=== PATIENT | female | born 1990 | race Native Hawaiian/Other Pacific Islander ===

== ENCOUNTER 2021-04-17 14:30 | Emergency (ER) | payer BC ==
[~2021-04-17] VITALS: Ht 170.2 cm; Wt 61.2 kg
[2021-04-17 14:44] VITALS: TEMP 98.7
[2021-04-17 16:40] VITALS: BP 94/56
== END 2021-04-17 16:40 | disposition home or self-care (01) ==
LOC: ED 14:30
DX: S92.355A Nondisplaced fracture of fifth metatarsal bone, left foot, initial encounter for closed fracture (principal); W10.8XXA Fall (on) (from) other stairs and steps, initial encounter; Y92.89 Other specified places as the place of occurrence of the external cause
CPT/HCPCS: 96372; 99283; J1885

== ENCOUNTER 2021-08-25 15:14 | Outpatient (CLI) | payer BC | END 2021-08-25 19:17 | disposition home or self-care (01) | LOC: LABW 15:14 | PROVIDERS: ATTEND Urology | DX: N20.0 Calculus of kidney (principal) | CPT/HCPCS: 82340; 82360; 82507; 83735; 83945 ==

== ENCOUNTER 2021-08-26 15:21 | Outpatient (CLI) | payer BC | END 2021-08-26 23:05 | disposition home or self-care (01) | LOC: LABW 15:21 | PROVIDERS: ATTEND Urology | DX: N20.0 Calculus of kidney (principal) | CPT/HCPCS: 84300; 84560 ==

== ENCOUNTER 2021-10-16 23:06 | Emergency (ER) | payer BC ==
[~2021-10-16] VITALS: Ht 170.2 cm; Wt 61.2 kg
[2021-10-17 01:20] VITALS: BP 95/57; TEMP 97.1
== END 2021-10-17 01:25 | disposition home or self-care (01) ==
LOC: ED 23:06
DX: R10.32 Left lower quadrant pain (principal); Z87.442 Personal history of urinary calculi
CPT/HCPCS: 81000; 81025; 96360; 96375; 99284; J1885; J2270; J2405